=== PATIENT | female | born 1995 | race Caucasian/White ===

== ENCOUNTER 2017-04-14 19:01 | Inpatient (IN) | payer OTHER ==
[~2017-04-14] VITALS: Ht 170.2 cm; Wt 86.4 kg
[2017-04-14 19:49] LABS: PLATELET COUNT 363 x10^3mcL (130-400); RED CELL DISTRIBUTION WIDTH 13.4 % (11.5-14.5)
[2017-04-14] MEDS ORDERED: ONDANSETRON4 M3 PO (19:51)
[2017-04-14] MEDS ORDERED: NAPROSYN500 MG PO (19:52)
[2017-04-14] MEDS ORDERED: LOPERAMIDE HCL2 MG PO (19:52)
[2017-04-14 19:56] LABS: CALCIUM 9.1 mg/dL (8.5-10.1); CARBON DIOXIDE 22.5 mmol/L (21-32); CHLORIDE SERUM 104 mmol/L (98-107); GFR1 > 60 mL/min; GLUCOSE SERUM 104 mg/dL (74-106); POTASSIUM SERUM 3.5 mmol/L (3.5-5.1); SODIUM SERUM 140 mmol/L (136-145)
[2017-04-14 20:06] LABS: ALBUMIN 4.5 g/dL (3.4-5.0); ALKALINE PHOSPHATASE 70 U/L (46-116); ALT/SGPT 37 U/L (14-59); AST/SGOT 22 U/L (15-37); BILIRUBIN TOTAL 0.35 mg/dL (0.20-1.00); TOTAL PROTEIN, SERUM 8.1 g/dL (6.4-8.2)
[2017-04-14 20:19] LABS: microscopic required? NO
[2017-04-14 20:50] LABS: UA SPECIFIC GRAVITY 1.015 (1.005-1.035); urine erythrocyte NEGATIVE (NEGATIVE)
[2017-04-14 20:56] LABS: BAND NEUTROPHIL 6 % (0-10); SEGMENTED NEUTROPHILS 81 % (37-75)
[2017-04-14 20:57] LABS: MONOCYTE 4 % (0-7); rbc morphology (normal/abnorm) NORMAL (NORMAL)
[2017-04-14 20:58] LABS: PLATELET MORPHOLOGY PLATELETS NORMAL
[2017-04-14 21:50] LABS: T3 TOTAL 0.75 ng/mL
[2017-04-14 21:54] VITALS: BP 146/93
[2017-04-14 21:55] LABS: FREE T4 1.13 ng/dL (0.76-1.46); FREE THYROXINE INDEX 2.5 ug/dL (1.4-4.5); T4(THYROXINE) 7.8 ug/dL (4.7-13.3)
[2017-04-14 22:06] LABS: CHOLESTEROL/HDL RATIO 2.7; MAGNESIUM 2.1 mg/dL (1.8-2.4); PHOSPHOROUS 3.3 mg/dL (2.5-4.9)
[2017-04-14 22:24] LABS: AMPHETAMINE QUAL UR NONE DETECTED (NEG <=1000)
[2017-04-15 03:04] VITALS: BP 154/96
[2017-04-15 04:42] LABS: BASOPHIL % 0.2 % (0-2); PLATELET COUNT 328 x10^3mcL (130-400); RED CELL DISTRIBUTION WIDTH 13.7 % (11.5-14.5)
[2017-04-15 05:03] LABS: CALCIUM 8.7 mg/dL (8.5-10.1); CARBON DIOXIDE 24.1 mmol/L (21-32); CHLORIDE SERUM 106 mmol/L (98-107); CREATININE SERUM 1.1 mg/dL (0.6-1.0); GFR1 > 60 mL/min; GLUCOSE SERUM 94 mg/dL (74-106); MAGNESIUM 1.9 mg/dL (1.8-2.4); PHOSPHOROUS 3.5 mg/dL (2.5-4.9); POTASSIUM SERUM 3.5 mmol/L (3.5-5.1); SODIUM SERUM 140 mmol/L (136-145)
[2017-04-15 07:50] VITALS: BP 124/61
[2017-04-15 11:45] VITALS: BP 154/75
[2017-04-15 14:04] VITALS: Ht 170.2 cm; Wt 86.4 kg
[2017-04-15 15:00] VITALS: BP 130/77
[2017-04-15] MEDS ORDERED: SERTRALINE50 M1 PO (15:41)
[2017-04-15 15:50] VITALS: BP 130/77
== END 2017-04-15 16:48 | disposition home or self-care (01) | DRG 812 ==
LOC: ED 19:01 → IC 21:00
PROVIDERS: Emergency Medicine; Family Medicine
DX: T50.992A Poisoning by other drugs, medicaments and biological substances, intentional self-harm, initial encounter (principal); N17.0 Acute kidney failure with tubular necrosis; G92 Toxic encephalopathy; Y92.89 Other specified places as the place of occurrence of the external cause; F33.1 Major depressive disorder, recurrent, moderate; I07.1 Rheumatic tricuspid insufficiency
CPT/HCPCS: 83880; 84439; G0480; J2405; J7030